=== PATIENT | male | born 1955 | race Caucasian/White ===

== ENCOUNTER 2021-04-19 08:45 | Emergency (ER) | payer MEDICARE, OTHER ==
--- NOTE | 2021-04-19 08:51 | EDM.PDOC ---
ED HPI GENERAL MEDICAL PROBLEM - General Chief Complaint: Chest Pain Stated Complaint: [id number] CHEST PAIN X 2 DAYS Time Seen by Provider: 04/19/21 08:50 Source of Information: Reports: Patient, RN, RN Notes Reviewed History Limitations: Reports: No Limitations - History of Present Illness INITIAL COMMENTS - FREE TEXT/NARRATIVE: Pt presents to ER by POV with c/o chest pain. Pt states he developed upper back & neck pain yesterday without injury or any known cause, and some chest pain in his upper chest. Pt states day prior to pain, he had been fishing. Pt drove here from his home in [place] a few days ago. Pt has a Hx of left humerus fracture with ORIF complicated with infection and DVT, and residual chronic left shoulder pain and back pain. Pt has a history of Parkinson disease. Pt denies Hx of CAD, TX, or PE. Pt states he had a stress test in the past and everything was good. Pt denies SOB. Pt states that when he breathes heavier it hurts in his chest and up his neck. Pt admits increased acid reflux and heartburn for the past several days. Onset: Gradual Onset Date: 04/18/21 Duration: Constant, Getting Worse Location: Reports: Neck, Chest, Back Quality: Reports: Ache, Dull, Pressure Severity: Moderate Improves with: Reports: None Worsens with: Reports: None Associated Symptoms: Reports: No Other Symptoms Upper Chest Pain Score (Numeric/FACES): 5 - Related Data Allergies Allergy/AdvReac Type Severity Reaction Status Date / Time shellfish derived Allergy Rash Verified 04/19/21 09:10 Home Meds: Home Meds Diclofenac Sodium [Voltaren 0.1% Oph Soln] 1 applic TOP DAILY 04/19/21 [History] Diclofenac Sodium [Voltaren] 1 applic TOP DAILY 04/19/21 [History] Lidocaine 5% 1 applic TOP DAILY 04/19/21 [History] Losartan [Cozaar] 100 mg PO DAILY 04/19/21 [History] Menthol [Biofreeze] 1 applic TOP DAILY 04/19/21 [History] Simvastatin 40 mg PO DAILY 04/19/21 [History] metFORMIN [Glucophage] 1,000 mg PO BIDMEALS 04/19/21 [History] traMADol [Ultram] 50 mg PO Q6H PRN 04/19/21 [History] Past Medical History Cardiovascular History: Reports: Blood Clots/VTE/DVT, High Cholesterol Musculoskeletal History: Reports: Arthritis, Fracture (Left humerus) Neurological History: Reports: Parkinson's Endocrine/Metabolic History: Reports: Diabetes, Type II, Obesity/BMI 30+ - Past Surgical History Musculoskeletal Surgical History: Reports: ORIF (Left humerus) Social & Family History - Family History Family Medical History: No Pertinent Family History - Tobacco Use Tobacco Use Status *Q: Never Tobacco User - Living Situation & Occupation Living situation: Reports: , with Spouse Occupation: Retired ED ROS GENERAL - Review of Systems Review Of Systems: Comprehensive ROS is negative, except as noted in HPI. ED EXAM, GENERAL - Physical Exam Exam: See Below Exam Limited By: No Limitations General Appearance: Alert, No Apparent Distress, Obese Eye Exam: Bilateral Eye: Normal Inspection Nose: Normal Inspection Throat/Mouth: Normal Lips, Normal Voice, No Airway Compromise Head: Atraumatic, Normocephalic Neck: Normal Inspection Respiratory/Chest: No Respiratory Distress, Lungs Clear, Normal Breath Sounds, No Accessory Muscle Use, Chest Non-Tender Cardiovascular: Normal Peripheral Pulses, Regular Rate, Rhythm, No Edema, No Murmur GI/Abdominal: Normal Bowel Sounds, Soft, Non-Tender, Other (Benign obese abd omen) Back Exam: Normal Inspection Extremities: Normal Inspection, Normal Range of Motion, Normal Capillary Refill Neurological: Alert, Oriented, No Motor/Sensory Deficits, Other (Rest tremor (known Parkinsons disease)) Psychiatric: Normal Affect, Normal Mood Skin Exam: Warm, Dry, Intact, Normal Color, No Rash #1 Interpretation EKG Date: 04/19/21 Time: 08:57 Rhythm: Other (SR) Rate (Beats/Min): 90 [place]: Normal P-Wave: Present QRS: Normal (with motion artifact (pt has Parkinsons tremor)) ST-T: Normal QT: Normal Comparison: NA - No Prior EKG Course - Vital Signs Last Recorded V/S: Last Vital Signs Temp 98.2 F 04/19/21 13:16 Pulse 103 H 04/19/21 13:16 Resp 14 04/19/21 13:16 BP 134/72 04/19/21 13:16 Pulse Ox 94 L 04/19/21 13:16 - Orders/Labs/Meds Orders: Active Orders 24 hr Category Date Time Status EKG 12 Lead [EKG Documentation Completion] [] ONETIME Care 04/19/21 13:30 Active EKG 12 Lead [EKG Documentation Completion] [] STAT Care 04/19/21 08:51 Active Peripheral IV Care [] . DIRECTED Care 04/19/21 09:22 Active Regular Diet [DIET] Diet 04/19/21 Lunch Active Nitroglycerin [Nitrostat] Med 04/19/21 09:21 Active 0.4 mg SL Q5M PRN Sodium Chloride 0.9% [Saline Flush] Med 04/19/21 09:21 Active 10 ml FLUSH ASDIRECTED PRN Peripheral IV Insertion Adult [OM.PC] Stat Oth 04/19/21 09:21 Ordered Medication Orders Nitroglycerin (Nitroglycerin 0.4 Mg Tab.Sl) 0.4 mg SL Q5M PRN PRN Reason: Chest Pain Last Admin: 04/19/21 09:38 Dose: 0.4 mg Documented by: Admin: 04/19/21 09:32 Dose: 0.4 mg Documented by: Admin: 04/19/21 09:27 Dose: 0.4 mg Documented by: NAT Sodium Chloride (Sodium Chloride 0.9% 10 Ml Syringe) 10 ml FLUSH ASDIRECTED PRN PRN Reason: Keep Vein Open Last Admin: 04/19/21 09:33 Dose: 10 ml Documented by: NAT Labs: Laboratory Tests 04/19/21 04/19/21 04/19/21 Range/Units 09:41 09:41 09:41 WBC 11.0 H (5.0-10.0) 10^3/uL RBC 5.83 (4.6-6.2) 10^6/uL Hgb 16.2 (14.0-18.0) g/dL Hct 47.5 (40.0-54.0) % MCV 81.5 (80-100) fL MCH 27.8 (27.0-34.0) pg MCHC 34.1 (33.0-35.0) g/dL Plt Count 190 (150-450) 10^3/uL Neut % (Auto) 76.4 H (42.2-75.2) % Lymph % (Auto) 12.4 L (20.5-50.1) % [place] % (Auto) 9.6 H (2-8) % Eos % (Auto) 1.1 (1.0-3.0) % Baso % (Auto) 0.5 (0.0-1.0) % PT 10.6 (9.0-12.0) SEC INR 1.1 (0.9-1.2) APTT 24.7 (22.0-34.0) SEC D-Dimer, Quantitative 106 (0-400) ng/mL Sodium 138 (136-145) mmol/L Potassium 3.8 (3.5-5.1) mmol/L Chloride 100 (98-107) mmol/L Carbon Dioxide 28 (21-32) mmol/L Anion Gap 13.8 H (7-13) mEq/L BUN 19 H (7-18) mg/dL Creatinine 0.82 (0.70-1.30) mg/dL Est Cr Clr Drug Dosing 91.50 mL/min Estimated GFR (MDRD) > 60 BUN/Creatinine Ratio 23.2 (No establ ref range) Glucose 129 H (70-99) mg/dL Calcium 9.1 (8.5-10.1) mg/dL Total Bilirubin 1.0 (0.2-1.0) mg/dL AST 17 (15-37) U/L ALT 30 (16-63) U/L Alkaline Phosphatase 56 (46-116) U/L Troponin I High Sens 6 (<=76) pg/mL Total Protein 7.2 (6.4-8.2) g/dL Albumin 3.5 (3.4-5.0) g/dL Globulin 3.7 Albumin/Globulin Ratio 0.9 Amylase 45 (25-115) U/L Lipase 94 (73-393) U/L // Range/Units 13:50 WBC (5.0-10.0) 10^3/uL RBC (4.6-6.2) 10^6/uL Hgb (14.0-18.0) g/dL Hct (40.0-54.0) % MCV (80-100) fL MCH (27.0-34.0) pg MCHC (33.0-35.0) g/dL Plt Count (150-450) 10^3/uL Neut % (Auto) (42.2-75.2) % Lymph % (Auto) (20.5-50.1) % [place] % (Auto) (2-8) % Eos % (Auto) (1.0-3.0) % Baso % (Auto) (0.0-1.0) % PT (9.0-12.0) SEC INR (0.9-1.2) APTT (22.0-34.0) SEC D-Dimer, Quantitative (0-400) ng/mL Sodium (136-145) mmol/L Potassium (3.5-5.1) mmol/L Chloride (98-107) mmol/L Carbon Dioxide (21-32) mmol/L Anion Gap (7-13) mEq/L BUN (7-18) mg/dL Creatinine (0.70-1.30) mg/dL Est Cr Clr Drug Dosing mL/min Estimated GFR (MDRD) BUN/Creatinine Ratio (No establ ref range) Glucose (70-99) mg/dL Calcium (8.5-10.1) mg/dL Total Bilirubin (0.2-1.0) mg/dL AST (15-37) U/L ALT (16-63) U/L Alkaline Phosphatase (46-116) U/L Troponin I High Sens 6 (<=76) pg/mL Total Protein (6.4-8.2) g/dL Albumin (3.4-5.0) g/dL Globulin Albumin/Globulin Ratio Amylase (25-115) U/L Lipase (73-393) U/L Meds: Medications Generic Name Dose Route Start Last Admin Trade Name Freq PRN Reason Stop Dose Admin Nitroglycerin 0.4 mg 04/19/21 09:21 04/19/21 09:38 Nitroglycerin 0.4 Mg Tab.Sl SL 0.4 mg Q5M PRN Administration Chest Pain Sodium Chloride 10 ml 04/19/21 09:21 04/19/21 09:33 Sodium Chloride 0.9% 10 Ml Syringe FLUSH 10 ml ASDIRECTED PRN Administration Keep Vein Open Discontinued Medications Generic Name Dose Route Start Last Admin Trade Name Freq PRN Reason Stop Dose Admin Aspirin 324 mg 04/19/21 09:21 04/19/21 09:26 Aspirin 81 Mg Tab.Chew PO 04/19/21 09:22 324 mg ONETIME ONE Administration Famotidine 20 mg 04/19/21 11:02 04/19/21 11:17 Famotidine 20 Mg/2 Ml Sdv IVPUSH 04/19/21 11:03 20 mg ONETIME ONE Administration Hydromorphone HCl 1 mg 04/19/21 10:58 04/19/21 11:17 Hydromorphone 1 Mg/Ml Syringe IVPUSH 04/19/21 10:59 1 mg ONETIME ONE Administration Nitroglycerin 1 gm 04/19/21 10:14 04/19/21 10:25 Nitroglycerin 2% Oint 1 Gm Ud Packet TOP 04/19/21 10:15 1 gm ONETIME ONE Administration Sucralfate 1 gm 04/19/21 11:03 04/19/21 12:00 Sucralfate Suspension 1 Gm/10 Ml Cup PO 04/19/21 11:04 1 gm ONETIME ONE Administration Tramadol HCl 50 mg 04/19/21 14:03 04/19/21 14:16 Tramadol 50 Mg Tab PO 04/19/21 14:04 50 mg ONETIME ONE Administration - Radiology Interpretation Free Text/Narrative:: [facility] [place] [facility] Final Radiology Report Call: [phone] assistance Online chat: [email or web address] Direct Name: KOBE SALDIVAR Age: 66Years M Date: 04/19/2021 SSN: -- : [id number] Study: CR CHEST 1V FRONTAL Requesting Physician: NE BYRD Images: 1 Addl Studies: Provided Clinical History: chest pain Contrast: Contrast Medium: Contrast Amount: Contrast Method: CONFIDENTIALITY STATEMENT This report is intended only for use by the referring physician, and only in accordance with law. If you received this in error, call [phone]. Page 1 of 1 PROCEDURE INFORMATION: Exam: XR Chest Exam date and time: 04/19/2021 9:24 AM Age: 66 years old Clinical indication: Pain; Left-sided; Additional info: Chest pain TECHNIQUE: Imaging protocol: XR of the chest. Views: 1 view. COMPARISON: No relevant prior exams. FINDINGS: Lungs: Unremarkable. No consolidation. Pleural spaces: Unremarkable. No pleural effusion. No pneumothorax. Heart/Mediastinum: Unremarkable. No cardiomegaly. Bones/joints: Changes to the left shoulder probably represent old trauma. Dedicated views of the left shoulder are recommended if clinical concern remains. No obvious acute fractures. IMPRESSION: No acute cardiopulmonary disease. Thank you for allowing us to participate in the care of your patient. Dictated and Authenticated by: Robert Rodriguez MD 04/19/2021 9:58 AM Central Time ([place] & [place]) - Re-Assessments/Exams Free Text/Narrative Re-Assessment/Exam: 04/19/21 11:35 Pt held as extended ER for chest pain rule out with repeat Troponin and EKG at 1345HRS. 04/19/21 15:09 Acute cardiac ischemia rule out. Pt will be d/c'd home. Departure - Departure Time of Disposition: 15:09 Disposition: Home, Self-Care 01 Condition: Good Clinical Impression: Atypical chest pain, Esophagitis Instructions: Nonspecific Chest Pain, Adult, [id number], Esophageal Spasm Forms: ED Department Discharge Additional Instructions: Rx: Pepcid (Famotidine) 40mg Follow up with your doctor in the next week for recheck. Sepsis Event Note (ED) - Focused Exam Vital Signs: Vital Signs Temp Pulse Resp BP BP Pulse Ox 04/19/21 13:16 98.2 F 103 H 14 134/72 94 L 04/19/21 09:38 119/62 04/19/21 09:34 103 H 125/61 04/19/21 09:32 113/64 04/19/21 09:31 113/64 04/19/21 09:27 149/70 H 04/19/21 08:55 98.2 F 86 18 170/86 H 98 - My Orders Last 24 Hours: My Active Orders 04/19/21 08:51 EKG 12 Lead [EKG Documentation Completion] [RC] STAT 04/19/21 09:21 Nitroglycerin [Nitrostat] 0.4 mg SL Q5M PRN Sodium Chloride 0.9% [Saline Flush] 10 ml FLUSH ASDIRECTED PRN Peripheral IV Insertion Adult [OM.PC] Stat 04/19/21 09:22 Peripheral IV Care [RC] . DIRECTED 04/19/21 Lunch Regular Diet [DIET] 04/19/21 13:30 EKG 12 Lead [EKG Documentation Completion] [RC] ONETIME - Assessment/Plan Last 24 Hours: My Active Orders 04/19/21 08:51 EKG 12 Lead [EKG Documentation Completion] [RC] STAT 04/19/21 09:21 Nitroglycerin [Nitrostat] 0.4 mg SL Q5M PRN Sodium Chloride 0.9% [Saline Flush] 10 ml FLUSH ASDIRECTED PRN Peripheral IV Insertion Adult [OM.PC] Stat 04/19/21 09:22 Peripheral IV Care [RC] . DIRECTED 04/19/21 Lunch Regular Diet [DIET] 04/19/21 13:30 EKG 12 Lead [EKG Documentation Completion] [RC] ONETIME
[2021-04-19] MEDS ORDERED: Sodium Chloride 0.9% 10 ML Syringe FLUSH PRN (09:21)
[2021-04-19] MEDS ORDERED: Aspirin 81 MG Tab.Chew PO ONE (09:21)
[2021-04-19] MEDS: Nitroglycerin 0.4 MG Tab.SL SL PRN ×3 (09:27→09:38)
--- NOTE | 2021-04-19 09:59 | CR ---
PROCEDURE INFORMATION: Exam: XR Chest Exam date and time: 04/19/2021 9:24 AM Age: 66 years old Clinical indication: Pain; Left-sided; Additional info: Chest pain TECHNIQUE: Imaging protocol: XR of the chest. Views: 1 view. COMPARISON: No relevant prior exams. FINDINGS: Lungs: Unremarkable. No consolidation. Pleural spaces: Unremarkable. No pleural effusion. No pneumothorax. Heart/Mediastinum: Unremarkable. No cardiomegaly. Bones/joints: Changes to the left shoulder probably represent old trauma. Dedicated views of the left shoulder are recommended if clinical concern remains. No obvious acute fractures. IMPRESSION: No acute cardiopulmonary disease.
[2021-04-19 10:05] LABS: PTT,PARTIAL THROMBOPLSTIN TIME 24.7 SEC (22.0-34.0)
[2021-04-19 10:09] LABS: ANION GAP 13.8 mEq/L (7-13); CHLORIDE,CL 100 mmol/L (98-107); SODIUM,NA 138 mmol/L (136-145)
[2021-04-19] MEDS ORDERED: Nitroglycerin 2% Oint 1 GM UD Packet TOP ONE (10:14)
[2021-04-19] MEDS ORDERED: HYDROmorphone 1 MG/ML Syringe IVPUSH ONE (10:58)
[2021-04-19] MEDS ORDERED: Famotidine 20 MG/2 ML SDV IVPUSH ONE (11:02)
[2021-04-19] MEDS ORDERED: Sucralfate Suspension 1 GM/10 ML Cup PO ONE (11:03)
[2021-04-19] MEDS ORDERED: traMADol 50 MG Tab PO ONE (14:03)
== END 2021-04-19 15:15 | disposition home or self-care (01) ==
LOC: DL.ED 08:45
DX: K20.90 Esophagitis, unspecified without bleeding (principal); E78.00 Pure hypercholesterolemia, unspecified; M19.90 Unspecified osteoarthritis, unspecified site; G20 Parkinson's disease; E11.9 Type 2 diabetes mellitus without complications; E66.9 Obesity, unspecified; Z68.38 Body mass index [BMI] 38.0-38.9, adult; Z91.013 Allergy to seafood; Z79.84 Long term (current) use of oral hypoglycemic drugs; Z79.899 Other long term (current) drug therapy
CPT/HCPCS: 36415; 71045; 80053; 82150; 83690; 84484; 85025; 85379; 85610; 85730; 93005; 96374; 96375; 99285-25; A9270-GY; J1170; J3490